=== PATIENT | male | born 1960 | race Two or more races ===

== ENCOUNTER 2017-03-09 13:47 | Inpatient (IN) | payer MEDICARE, MEDICAID ==
[~2017-03-09] VITALS: Ht 162.6 cm; Wt 61.7 kg
[2017-03-09 17:00] VITALS: BP 113/73
[2017-03-09] MEDS ORDERED: LIPITOR80 MG ORAL (17:12)
[2017-03-09] MEDS ORDERED: PLAVIX300 MG ORAL (17:12)
[2017-03-09] MEDS ORDERED: LISINOPRIL5 MG ORAL (17:12)
[2017-03-09] MEDS ORDERED: TERAZOSIN HCL2 MG PO (17:12)
[2017-03-09] MEDS ORDERED: NORVASC2.5 MG ORAL (17:14)
--- NOTE | 2017-03-09 17:14 | History & Physical ---
History and Physical History & Physicial Case was discussed with Dr Erickson Full consult will be dictated KIKE GASPAR Mar 09, 2017 17:14
[2017-03-09 17:50] LABS: CALCIUM 10.1 mg/dL (8.6-10.2); CREATININE 10.6 mg/dL (0.7-1.2); GLOMERULAR FILTRATION RATE 5.1 mL/min (>60); POTASSIUM 4.9 mEQ/L (3.4-4.9)
[2017-03-09 20:20] VITALS: BP 110/73
[2017-03-09] MEDS: Heparin 5000 units/ml inj SUBQ SCH (21:59)
[2017-03-09] MEDS: Terazosin 2mg cap ORAL SCH (21:59)
[2017-03-10] VITALS (7 sets, daily range): BP systolic 109–131; BP diastolic 65–78
[2017-03-10] MEDS: Heparin 5000 units/ml inj SUBQ SCH ×3 (06:00→21:07)
[2017-03-10 07:07] LABS: MEAN CORPUSCULAR HEMOGLOBIN 35.3 PG (27.0-31.0); MEAN CORPUSCULAR VOLUME 104 FL (80-99); MEAN PLATELET VOLUME 6.5 FL (6.5-10.1); PLATELET COUNT 190 K/UL (150-450); RED BLOOD COUNT 3.03 M/UL (4.70-6.10); RED CELL DISTRIBUTION WIDTH 12.7 % (11.6-14.8); WHITE BLOOD COUNT 10.9 K/UL (4.8-10.8)
[2017-03-10 07:14] LABS: INR 1.1 (0.9-1.1); PROTHROMBIN TIME 11.4 SEC (9.30-11.50)
[2017-03-10 07:23] LABS: ALBUMIN/GLOBULIN RATIO 1.6 (1.0-2.7); CALCIUM 9.9 mg/dL (8.6-10.2); CREATININE 8.8 mg/dL (0.7-1.2); GLOMERULAR FILTRATION RATE 6.3 mL/min (>60); POTASSIUM 4.5 mEQ/L (3.4-4.9); TOTAL PROTEIN 6.8 g/dL (6.6-8.7)
[2017-03-10 08:11] LABS: BAND NEUTROPHILS % (MANUAL) 0 % (0-8); BASOPHILS % (MANUAL) 1 % (0-2); EOSINOPHILS % (MANUAL) 27 % (0-3); LYMPHOCYTES % (MANUAL) 23 % (20-45); NEUTROPHILS % (MANUAL) 45 % (45-75); PLATELET ESTIMATE ADEQUATE; TOTAL CELLS COUNTED 100
[2017-03-10 08:12] LABS: PLATELET MORPHOLOGY NORMAL
[2017-03-10 08:15] LABS: MACROCYTES 1+
[2017-03-10] MEDS ORDERED: Lidocaine 1% Plain 30 ml INJ ONE (12:30)
[2017-03-10] MEDS ORDERED: Heparin 2000 units/Ns 1000ml INJ ONE (12:30)
[2017-03-10] MEDS ORDERED: Heparin Sod 1000 units/ml 10ml INJ ONE (12:30)
--- NOTE | 2017-03-10 13:08 | Consultation ---
Consult Note Assessment/Plan Renal consult dictated # [id number] KIKE GASPAR Mar 10, 2017 13:08
[2017-03-10 13:35] LABS: PSA TOTAL 0.7 ng/mL (< 3.5)
[2017-03-10 13:48] LABS: CHOLESTEROL/HDL RATIO 3.7 (3.3-4.4)
--- NOTE | 2017-03-10 15:35 | History & Physical ---
History and Physical History & Physicial Dictated for Int Med-Dr Erickson no. [id number]. SONU MCINTOSH Mar 10, 2017 15:35
--- NOTE | 2017-03-10 18:40 | Cardiology Report ---
APPROVED REPORT EXAM: Two-dimensional and M-mode echocardiogram with Doppler and color Doppler. INDICATION CAD M-Mode DIMENSIONS IVSd1.4 (0.7-1.1cm)Left Atrium (MM)3.5 (1.6-4.0cm) LVDd4.1 (3.5-5.6cm)Aortic Root3.2 (2.0-3.7cm) PWd0.8 (0.7-1.1cm)Aortic Cusp Exc.1.8 (1.5-2.0cm) LVDs1.7 (2.5-4.0cm) PWs1.7 cm Normal left ventricular chamber size, hyperdynamic systolic function and wall motion. Left ventricular ejection fraction estimated to be 70-75 %. Mild left ventricular hypertrophy. Anterior Echo-free space, may be due to pericardial fat or effusion. All other cardiac chamber sizes are within normal limits. Focal aortic valve sclerosis with adequate cusp excursion. Thickened mitral valve leaflets with normal excursion. Mitral annulus and aortic root calcification. Pulmonic valve not well visualized. Normal tricuspid valve structure. IVC at normal size with physiologic collapse. A color flow and spectral Doppler study was performed and revealed: Trace aortic regurgitation. Trace mitral regurgitation. Mitral diastolic velocities suggest reduced left ventricular relaxation c/w mild LV diastolic dysfunction (Grade I). Trace tricuspid regurgitation. Tricuspid systolic velocities suggests peak right ventricular systolic pressure of 13 mmHg.
--- NOTE | 2017-03-10 21:07 | Consultation ---
History of Present Illness Present Illness Allergies: Coded Allergies: NO KNOWN ALLERGIES (Verified Allergy, Unknown, 03/09/17) Medication History Scheduled Amlodipine Besylate (Norvasc), 2.5 MG ORAL DAILY, (Reported) Atorvastatin (Lipitor), 10 MG ORAL BEDTIME, (Reported) Clopidogrel Bisulfate (Plavix), 75 MG ORAL DAILY, (Reported) Lisinopril (Lisinopril*), 5 MG ORAL DAILY, (Reported) Terazosin Hcl (Terazosin Hcl), 2 MG PO BEDTIME, (Reported) Patient History Healthcare decision maker Resuscitation status Full Code Advanced Directive on File Physical Exam Last 24 Hour Vital Signs Date Time Temp Pulse Resp B/P (MAP) Pulse Ox O2 Delivery O2 Flow Rate FiO2 03/10/17 20:00 97.2 88 20 131/78 98 Room Air 03/10/17 16:00 94 03/10/17 15:33 98.2 86 18 111/73 98 Room Air 03/10/17 12:00 103 03/10/17 11:41 97.7 97 18 116/69 98 Room Air 03/10/17 08:53 95 116/73 03/10/17 08:30 98.6 95 18 116/73 100 Room Air 03/10/17 08:00 90 03/10/17 04:30 98.0 58 20 110/72 96 Room Air 03/10/17 04:30 97.7 81 20 109/65 98 Room Air 03/10/17 04:00 74 03/10/17 00:25 98.0 98 20 110/73 98 Room Air 03/10/17 00:00 83 03/10/17 00:00 97.7 81 20 109/65 98 Room Air Intake and Output 03/10/17 03/11/17 18:59 06:59 Intake Total 360 ml Output Total 400 ml Balance -40 ml Intake Oral 360 ml Output Urine Total 400 ml Laboratory Tests Test 03/10/17 06:15 03/10/17 06:45 White Blood Count 10.9 K/UL (4.8-10.8) H Red Blood Count 3.03 M/UL (4.70-6.10) L Hemoglobin 10.7 G/DL (14.2-18.0) L Hematocrit 31.4 % (42.0-52.0) L Mean Corpuscular Volume 104 FL (80-99) H Mean Corpuscular Hemoglobin 35.3 PG (27.0-31.0) H Mean Corpuscular Hemoglobin Concent 34.0 G/DL (32.0-36.0) Red Cell Distribution Width 12.7 % (11.6-14.8) Platelet Count 190 K/UL (150-450) Mean Platelet Volume 6.5 FL (6.5-10.1) Neutrophils (%) (Auto) % (45.0-75.0) Lymphocytes (%) (Auto) % (20.0-45.0) Monocytes (%) (Auto) % (1.0-10.0) Eosinophils (%) (Auto) % (0.0-3.0) Basophils (%) (Auto) % (0.0-2.0) Differential Total Cells Counted 100 Neutrophils % (Manual) 45 % (45-75) Lymphocytes % (Manual) 23 % (20-45) Monocytes % (Manual) 4 % (1-10) Eosinophils % (Manual) 27 % (0-3) H Basophils % (Manual) 1 % (0-2) Band Neutrophils 0 % (0-8) Platelet Estimate Adequate Platelet Morphology Normal Macrocytosis 1+ Prothrombin Time 11.4 SEC (9.30-11.50) Prothromb Time International Ratio 1.1 (0.9-1.1) Activated Partial Thromboplast Time 23 SEC (23-33) Calcium (Send out) Pending Phosphorus Level 6.7 mg/dL (2.5-4.8) H Triglycerides Level 76 mg/dL (< 150) Cholesterol Level 106 mg/dL (< 200) LDL Cholesterol 62 mg/dL (60-99) HDL Cholesterol 29 mg/dL (> 60) Cholesterol/HDL Ratio 3.7 (3.3-4.4) Prostate Specific Antigen 0.7 ng/mL (< 3.5) Parathyroid Hormone (Intact) Pending Sodium Level 146 mEQ/L (135-145) H Potassium Level 4.5 mEQ/L (3.4-4.9) Chloride Level 102 mEQ/L (98-107) Carbon Dioxide Level 26 mEQ/L (20-30) Anion Gap 18 (5-15) H Blood Urea Nitrogen 100 mg/dL (7-23) H Creatinine 8.8 mg/dL (0.7-1.2) H Estimat Glomerular Filtration Rate 6.3 mL/min (>60) Glucose Level 98 mg/dL (74-106) Calcium Level 9.9 mg/dL (8.6-10.2) Magnesium Level 2.0 mg/dL (1.7-2.5) Total Bilirubin 0.4 mg/dL (0.0-1.2) Aspartate Amino Transf (AST/SGOT) 14 U/L (5-40) Alanine Aminotransferase (ALT/SGPT) 14 U/L (3-41) Alkaline Phosphatase 102 U/L (40-129) Total Protein 6.8 g/dL (6.6-8.7) Albumin 4.2 g/dL (3.5-5.2) Globulin 2.6 g/dL Albumin/Globulin Ratio 1.6 (1.0-2.7) Height (Feet): 5 Height (Inches): 4.00 Weight (Pounds): 136 Medications Current Medications Medications (Trade) Dose Ordered Sig/Osiris Route PRN Reason Start Time Stop Time Status Last Admin Dose Admin Acetaminophen (Tylenol) 650 mg Q6H PRN ORAL Mild Pain/Temp > 100.5 03/09/17 17:30 04/08/17 17:29 Amlodipine Besylate (Norvasc) 2.5 mg DAILY ORAL 03/10/17 09:00 04/09/17 08:59 03/10/17 08:53 Atorvastatin Calcium (Lipitor) 10 mg BEDTIME ORAL 03/09/17 21:00 04/08/17 20:59 03/09/17 21:58 Clopidogrel Bisulfate (Plavix) 75 mg DAILY ORAL 03/10/17 09:00 04/09/17 08:59 03/10/17 08:53 Heparin Sodium (Porcine) (Heparin 5000 units/ml) 5,000 units EVERY 8 HOURS SUBQ 03/09/17 22:00 04/08/17 21:59 03/10/17 13:21 Terazosin HCl (Hytrin) 2 mg BEDTIME ORAL 03/09/17 21:00 04/08/17 20:59 03/09/17 21:59 LOAN LAURA Mar 10, 2017 21:07
[2017-03-10] MEDS: Terazosin 2mg cap ORAL SCH (21:10)
--- NOTE | 2017-03-10 22:00 | History and Physical Report ---
DATE OF ADMISSION: 03/09/2017 CHIEF COMPLAINT: The patient is a 56-year-old male, who presents with chief complaint of decreased urine output. HISTORY OF PRESENT ILLNESS: The patient has a history of hypertension. The patient is followed as an outpatient for hypertensive renal disease by Dr. Hans Palacios. The patient states he had laboratory studies drawn a week ago, which were normal. The patient states two days ago, he began to experience decreased urine output. The patient states he does not have air conditioning in his apartment. The patient states the temperature in the apartment reached to 103 degrees Fahrenheit. The patient initially presented to [facility] emergency room. The patient was found to have elevated BUN and creatinine. The patient is admitted for acute on chronic renal failure. REVIEW OF SYSTEMS: Constitutional: The patient denies weight loss or weight gain. The patient denies fevers or chills. HEENT: The patient denies ear or throat pain. The patient denies headache. Cardiovascular: The patient denies palpitations or chest pain. Chest: The patient denies wheeze or shortness of breath. Abdomen: The patient denies nausea, vomiting, diarrhea, or constipation. Genitourinary: The patient complains of decreased urine output as above. The patient denies increased frequency of urination or dysuria. PAST MEDICAL HISTORY: Significant for: 1. Hypertension. 2. History of cerebrovascular accident. 3. Right hemiplegia. 4. Benign prostatic hypertrophy. 5. History of chronic renal failure. PAST SURGICAL HISTORY: The patient denies. CURRENT MEDICATIONS: 1. Lipitor 10 mg one tablet p.o. daily. 2. Lisinopril 5 mg one tablet p.o. daily. 3. Hytrin 10 mg one tablet p.o. nightly. 4. Plavix 75 mg one tablet p.o. daily. 5. Tramadol 50 mg one to two tablets p.o. q.4 h. p.r.n. 6. Norvasc 2.5 mg one tablet p.o. daily. 7. Prilosec 40 mg one tablet p.o. daily. 8. Labetalol 100 mg one tablet p.o. daily. 9. Mylicon 80 mg one tablet p.o. p.r.n. ALLERGIES: No known drug allergies. SOCIAL HISTORY: The patient is single. The patient lives with a friend. The patient denies tobacco or alcohol use. PHYSICAL EXAMINATION: VITAL SIGNS: Temperature is 98.0, respirations 20, pulse 98, and blood pressure 110/73. GENERAL: The patient is well-developed and well-nourished thin-appearing male, in no apparent distress. HEENT: Eyes, pupils are equal and responsive to light and accommodation. Extraocular movements are intact. NECK: Supple without lymphadenopathy. CHEST: Lungs are clear to auscultation bilaterally without wheezes or rales. CARDIOVASCULAR: Regular rhythm and rate. S1 and S2 normal without murmurs, rubs, or gallops. ABDOMEN: Soft, nontender, and nondistended. Positive bowel sounds. No evidence of hepatosplenomegaly. Currently, no rebound or guarding noted. EXTREMITIES: Negative for clubbing, cyanosis, or edema. RECTAL/GENITAL: Refused. NEUROLOGIC: Cranial nerves II through XII are grossly intact without focal deficits. Motor strength is 2/5 on the right and 5/5 on the left. Deep tendon reflexes are 2+ plantar. LABORATORY STUDIES: From [place], WBC 9.2, hemoglobin 10.8, hematocrit 32.0, and platelets . INCOMPLETE DICTATION Willi Aguila M.D. DR: PACHECO JOB#: [id number] CC:
--- NOTE | 2017-03-10 23:45 | Consultation ---
DATE OF CONSULTATION: 03/09/2017 NEPHROLOGY CONSULTATION CONSULTING PHYSICIAN: Joaquín Hankins M.D. REFERRING PHYSICIAN: Ihsan Erickson M.D. REASON FOR CONSULTATION: Advanced renal failure. HISTORY OF PRESENT ILLNESS: This is a 56-year-old male, who was diagnosed with kidney failure about 7 years ago. This is according to the patient. However, he does not know what is baseline serum creatinine is. He went recently to [facility], because he could not urinate. He stopped urination for about 2 days. He stated his potassium was high and given something to lower his potassium, but then he was able to urinate. He was eventually transferred to [facility] from [place]. PAST MEDICAL HISTORY: He denies history of diabetes, but he does have history of hypertension. MEDICATIONS: Reviewed in EMR. SOCIAL HISTORY: Remote history of smoking. No history of alcohol abuse. The patient lives with a roommate. ALLERGIES: No known drug allergies. REVIEW OF SYSTEMS: As above. PHYSICAL EXAMINATION: GENERAL: The patient is a 56-year-old male, in no acute distress. VITAL SIGNS: Blood pressure is 160/69, pulse 97, respiratory rate is 18, and temperature 97.7 degrees. HEENT: Somewhat pale conjunctivae. Anicteric sclerae. NECK: Supple. LUNGS: Clear to auscultation. HEART: S1 and S2 without murmurs or rubs. ABDOMEN: Soft and nontender. EXTREMITIES: No cyanosis or edema. LABORATORY FINDINGS: The CBC shows a WBC of 10.9, hematocrit is 31.4, hemoglobin is 10.7, and platelets is 190,000. Chemistry panel shows a serum sodium of 148, potassium 4.9, chloride 103, CO2 26, BUN is 107, creatinine 10.6, glucose 160, and calcium is 10.1. Phosphorus 6.7 this is today, also BUN and creatinine today are 100 and 8.8. ASSESSMENT: This is a 56-year-old male, who is admitted with urinary retention. It is unclear what is the patient's serum creatinine is. It appears that he has acute on chronic renal failure. His serum creatinine is slightly better today compared with yesterday. I am suspecting that he has BPH and probably that is causing obstructive uropathy, but he may have underlying hypertensive nephropathy as well. PLAN: I had a long discussion with the patient. He may need long-term dialysis. However, at this point, I do not think there is an urgency since his creatinine has come down slightly and also we have to find out if his obstruction is acute, causing some of his rise in serum creatinine. Plan is a kidney ultrasound will be done. I would recommend to get a urology consultation if there is indeed obstruction under ultrasound. His chemistry panel will be followed if the patient needs to have dialysis long-term, he would get a PermCath. All of this was discussed with the patient and he understood. Also, as part of workup of his chronic kidney disease, I would get a PTH level with morning labs. Thank you very much, Dr. Erickson, for this consultation. Joaquín Hankins M.D. DR: MIKALA JOB#: [id number] CC:
[2017-03-11] VITALS (7 sets, daily range): BP systolic 102–130; BP diastolic 62–84
--- NOTE | 2017-03-11 00:45 | History and Physical Report ---
DATE OF ADMISSION: 03/09/2017 CHIEF COMPLAINT: The patient is a 56-year-old male, presents with chief complaint of decreased urine output. HISTORY OF PRESENT ILLNESS: The patient has a history of chronic renal failure. The patient is followed as an outpatient by Dr. Hans Palacios. The patient states he had laboratory studies drawn two weeks previously, which was within normal limits. The patient states during the recent heat wave, temperature in his apartment reached to 102 degrees Fahrenheit. The patient does not have air conditioning. The patient then began to experience decreased urine output. The patient initially presented to [facility] emergency room. The patient was found to have elevated BUN and creatinine. The patient is transferred to [facility] for insurance purposes. The patient is admitted for acute renal failure. PAST MEDICAL HISTORY: Significant for: 1. Hypertension. 2. Cerebrovascular disease, status post cerebrovascular accident in 2009. 3. Benign prostatic hypertrophy. 4. Chronic renal disease. PAST SURGICAL HISTORY: The patient denies. CURRENT MEDICATIONS: 1. Lipitor 10 mg one tablet p.o. daily. 2. Lisinopril 5 mg one tablet p.o. daily. 3. Hytrin 2 mg one tablet p.o. daily. 4. Plavix 75 mg one tablet p.o. daily. 5. Amlodipine 2.5 mg one tablet p.o. daily. 6. Lipitor 10 mg one tablet p.o. daily. 7. Coreg 6.25 mg one tablet p.o. twice a day. 8. Iron sulfate. 9. Vitamin, multivitamin. 10. Allopurinol. ALLERGIES: No known drug allergies. SOCIAL HISTORY: The patient is single and lives with a friend. The patient denies tobacco or alcohol use. REVIEW OF SYSTEMS: Constitutional: The patient denies weight loss or weight gain. The patient denies fevers or chills. HEENT: The patient denies ear or throat pain. The patient denies headache. Cardiovascular: The patient denies palpitations or chest pain. Chest: The patient denies wheeze or shortness of breath. Abdominal: The patient denies nausea, vomiting, diarrhea, or constipation. Genitourinary: The patient complains of decreased urine output as above. The patient denies dysuria or increased frequency of urination. Neuromuscular: The patient denies seizures or generalized weakness. PHYSICAL EXAMINATION: VITAL SIGNS: Temperature 98.0 degrees, respirations 20, pulse 98, and blood pressure 110/73. GENERAL: The patient is a well-developed, well-nourished, thin-appearing male, in no apparent distress. HEENT: Eyes: Pupils equal and responsive to light and accommodation. Extraocular movements are intact. NECK: Supple without lymphadenopathy. CHEST: Lungs are clear to auscultation bilaterally without wheezes or rales. CARDIOVASCULAR: Regular rhythm and rate. S1 and S2 normal without murmurs, rubs, or gallops. ABDOMEN: Soft, nontender, and nondistended. Positive bowel sounds. No evidence of hepatosplenomegaly. Currently, no rebound or guarding noted. EXTREMITIES: Negative for clubbing, cyanosis, or edema. RECTAL: Refused. GENITAL: Refused. NEUROLOGIC: Cranial nerves II to XII are grossly intact without focal deficits. Motor strength is 2/5 on the right and 5/5 on the left. Deep tendon reflexes are 2+ plantar. LABORATORY STUDIES: From [place], WBC 9.2, hemoglobin 10.8, hematocrit 32.0, and platelets 282,000. Sodium 138, potassium 5.8, chloride 102, CO2 of 23, BUN 111 (elevated), creatinine elevated at 11.3, and glucose elevated at 152. Urinalysis showed negative leukocyte esterase and nitrite. ASSESSMENT: This is a 56-year-old male. 1. Oliguria. 2. Renal failure. 3. Hypertension. 4. Right hemiplegia. 5. Benign prostatic hypertrophy. 6. Cerebrovascular disease. TREATMENT: 1. Oliguria/renal failure. A Nephrology consultation was obtained with Dr. Joaquín Hanikns. A renal ultrasound is pending. We will follow recommendations of Dr. Hankins. 2. Hypertension. Continue Norvasc and Coreg as above. 3. Right hemiplegia. 4. Benign prostatic hypertrophy. Continue Hytrin as above. 5. History of cerebrovascular disease. Willi Aguila M.D. DR: Gracie JOB#: [id number] CC:
[2017-03-11] MEDS: Heparin 5000 units/ml inj SUBQ SCH ×3 (04:59→22:18)
[2017-03-11 07:12] LABS: CALCIUM 9.7 mg/dL (8.6-10.2); CREATININE 7.8 mg/dL (0.7-1.2); GLOMERULAR FILTRATION RATE 7.2 mL/min (>60); POTASSIUM 4.8 mEQ/L (3.4-4.9)
--- NOTE | 2017-03-11 09:43 | Diagnostic Imaging Report ---
Indication: Abnormal renal function tests Technique: Grayscale and duplex images of the kidneys, retroperitoneum, and bladder were obtained. Comparison:None Findings: Right kidney measures 6.7 cm in length. Left kidney measures 8 cm in length. Both kidneys demonstrate increased echogenicity. No hydronephrosis. There are bilateral renal cysts incidentally noted. Normal inferior vena cava. Bladder is normal. Impression: Bilateral atrophic echogenic kidneys, consistent with medical renal disease. Negative for hydronephrosis Incidental finding bilateral renal cysts.
--- NOTE | 2017-03-11 12:04 | Internal Med Progress Note ---
Subjective Date of Service: Mar 11, 2017 Physician Name Willi Mcintosh Attending Physician Ihsan Erickson MD Current Medications Medications (Trade) Dose Ordered Sig/Osiris Route PRN Reason Start Time Stop Time Status Last Admin Dose Admin Acetaminophen (Tylenol) 650 mg Q6H PRN ORAL Mild Pain/Temp > 100.5 03/09/17 17:30 04/08/17 17:29 Amlodipine Besylate (Norvasc) 2.5 mg DAILY ORAL 03/10/17 09:00 04/09/17 08:59 03/10/17 08:53 Atorvastatin Calcium (Lipitor) 10 mg BEDTIME ORAL 03/09/17 21:00 04/08/17 20:59 03/10/17 21:10 Clopidogrel Bisulfate (Plavix) 75 mg DAILY ORAL 03/10/17 09:00 04/09/17 08:59 03/11/17 08:27 Heparin Sodium (Porcine) (Heparin 5000 units/ml) 5,000 units EVERY 8 HOURS SUBQ 03/09/17 22:00 04/08/17 21:59 03/11/17 04:59 Terazosin HCl (Hytrin) 2 mg BEDTIME ORAL 03/09/17 21:00 04/08/17 20:59 03/10/17 21:10 Allergies: Coded Allergies: NO KNOWN ALLERGIES (Verified Allergy, Unknown, 03/09/17) ROS Limited/Unobtainable: No Constitutional: Reports: no symptoms HEENT: Reports: no symptoms Cardiovascular: Reports: no symptoms Respiratory: Reports: no symptoms Gastrointestinal/Abdominal: Reports: no symptoms Genitourinary: Reports: no symptoms Neurologic/Psychiatric: Reports: no symptoms Subjective 56 YO M admitted with oliguria. Now acute on chronic renal failure. Cover for Int med-Dr Erickson. Await urology consult to R/O obstructive uropathy Objective Last Vital Signs Date Time Temp Pulse Resp B/P (MAP) Pulse Ox O2 Delivery O2 Flow Rate FiO2 03/11/17 08:27 100 102/68 03/11/17 08:25 97.5 18 96 Room Air General Appearance: WD/WN, no apparent distress, alert EENT: PERRL/EOMI, normal ENT inspection, TMs normal Neck: non-tender, normal alignment, supple, normal inspection Cardiovascular: normal peripheral pulses, normal rate, regular rhythm, no gallop/murmur, no JVD Respiratory/Chest: chest wall non-tender, lungs clear, normal breath sounds, no respiratory distress, no accessory muscle use Abdomen: normal bowel sounds, non tender, soft, no organomegaly, no mass Extremities: normal range of motion Neurologic: nursing project coordinator II-XII grossly normal Skin: normal pigmentation, warm/dry Laboratory Tests Test 03/11/17 06:15 Sodium Level 141 mEQ/L (135-145) Potassium Level 4.8 mEQ/L (3.4-4.9) Chloride Level 100 mEQ/L (98-107) Carbon Dioxide Level 26 mEQ/L (20-30) Anion Gap 15 (5-15) Blood Urea Nitrogen 95 mg/dL (7-23) H Creatinine 7.8 mg/dL (0.7-1.2) H Estimat Glomerular Filtration Rate 7.2 mL/min (>60) Glucose Level 98 mg/dL (74-106) Hemoglobin A1c 5.6 % (< 6.0) Calcium Level 9.7 mg/dL (8.6-10.2) Magnesium Level 1.9 mg/dL (1.7-2.5) Intake and Output 03/11/17 03/12/17 19:00 07:00 Output Total 150 ml Balance -150 ml Output Urine Total 150 ml Assessment/Plan Problem List: (1) Oliguria (2) HTN (hypertension) Assessment & Plan: Better control with norvasc (3) Right hemiplegia (4) BPH (benign prostatic hyperplasia) Assessment & Plan: Cont hytrin; await urology consult. (5) Cerebral vascular disease (6) Renal failure Assessment & Plan: Acute on chronic. See nephrology note; await urology consult to R/O obstructive uropathy Status: progressing WILLI MCINTOSH Mar 11, 2017 12:04
[2017-03-11 13:11] LABS: CALCIUM 9.4 mg/dL (8.7-10.2); PTH INTACT 369 pg/mL (15-65)
--- NOTE | 2017-03-11 13:29 | Nephrology Progress Note ---
Assessment/Plan Problem List: (1) Acute on chronic renal failure (2) Secondary hyperparathyroidism (of renal origin) (3) HTN (hypertension) Plan Add Zemplar follow BMP Hold off on dialysis Subjective Subjective feels ok Objective Objective Last 24 Hour Vital Signs Date Time Temp Pulse Resp B/P (MAP) Pulse Ox O2 Delivery O2 Flow Rate FiO2 03/11/17 12:00 97.5 94 18 111/76 99 Room Air 03/11/17 08:27 100 102/68 03/11/17 08:25 97.5 100 18 102/68 96 Room Air 03/11/17 08:00 93 03/11/17 04:00 97.9 82 20 107/64 96 Room Air 03/11/17 00:00 97.9 79 18 108/76 96 Room Air 03/10/17 20:00 97.2 88 20 131/78 98 Room Air 03/10/17 16:00 94 03/10/17 15:33 98.2 86 18 111/73 98 Room Air Intake and Output 03/11/17 03/12/17 19:00 07:00 Output Total 1300 ml Balance -1300 ml Output Urine Total 1300 ml Laboratory Tests 03/11/17 06:15: Sodium Level 141, Potassium Level 4.8, Chloride Level 100, Carbon Dioxide Level 26, Anion Gap 15, Blood Urea Nitrogen 95H, Creatinine 7.8H, Estimat Glomerular Filtration Rate 7.2, Glucose Level 98, Hemoglobin A1c 5.6, Calcium Level 9.7, Magnesium Level 1.9 Height (Feet): 5 Height (Inches): 4.00 Weight (Pounds): 136 Cardiovascular: normal rate Respiratory/Chest: lungs clear KIKE GASPAR Mar 11, 2017 13:29
[2017-03-11] MEDS ORDERED: Paricalcitol 1mcg cap ORAL SCH (14:30)
--- NOTE | 2017-03-11 15:27 | Pulmonology Progress Note ---
Assessment/Plan Problems: (1) Acute on chronic renal failure (2) HTN (hypertension) (3) Right hemiplegia Assessment/Plan renal function improving slightly Renal US noted med/surg no acute cardiac issues f/u electrolytes in am Subjective ROS Limited/Unobtainable: No Constitutional: Reports: no symptoms HEENT: Repors: no symptoms Respiratory: Reports: no symptoms Allergies: Coded Allergies: NO KNOWN ALLERGIES (Verified Allergy, Unknown, 03/09/17) Objective Last 24 Hour Vital Signs Date Time Temp Pulse Resp B/P (MAP) Pulse Ox O2 Delivery O2 Flow Rate FiO2 03/11/17 12:00 97.5 94 18 111/76 99 Room Air 03/11/17 08:27 100 102/68 03/11/17 08:25 97.5 100 18 102/68 96 Room Air 03/11/17 08:00 93 03/11/17 04:00 97.9 82 20 107/64 96 Room Air 03/11/17 00:00 97.9 79 18 108/76 96 Room Air 03/10/17 20:00 97.2 88 20 131/78 98 Room Air 03/10/17 16:00 94 03/10/17 15:33 98.2 86 18 111/73 98 Room Air Intake and Output 03/11/17 03/12/17 19:00 07:00 Output Total 1300 ml Balance -1300 ml Output Urine Total 1300 ml General Appearance: WD/WN HEENT: normocephalic, atraumatic Respiratory/Chest: chest wall non-tender, lungs clear, normal breath sounds Cardiovascular: normal peripheral pulses, normal rate Abdomen: normal bowel sounds, soft, non tender Genitourinary: normal external genitalia Extremities: no cyanosis Skin: no rash Neurologic/Psychiatric: compensation director II-XII grossly normal, no motor/sensory deficits Lymphatic: no neck adenopathy Laboratory Tests 03/11/17 06:15: Sodium Level 141, Potassium Level 4.8, Chloride Level 100, Carbon Dioxide Level 26, Anion Gap 15, Blood Urea Nitrogen 95H, Creatinine 7.8H, Estimat Glomerular Filtration Rate 7.2, Glucose Level 98, Hemoglobin A1c 5.6, Calcium Level 9.7, Magnesium Level 1.9 Current Medications Medications (Trade) Dose Ordered Sig/Osiris Route PRN Reason Start Time Stop Time Status Last Admin Dose Admin Acetaminophen (Tylenol) 650 mg Q6H PRN ORAL Mild Pain/Temp > 100.5 03/09/17 17:30 04/08/17 17:29 Amlodipine Besylate (Norvasc) 2.5 mg DAILY ORAL 03/10/17 09:00 04/09/17 08:59 03/10/17 08:53 Atorvastatin Calcium (Lipitor) 10 mg BEDTIME ORAL 03/09/17 21:00 04/08/17 20:59 03/10/17 21:10 Clopidogrel Bisulfate (Plavix) 75 mg DAILY ORAL 03/10/17 09:00 04/09/17 08:59 03/11/17 08:27 Heparin Sodium (Porcine) (Heparin 5000 units/ml) 5,000 units EVERY 8 HOURS SUBQ 03/09/17 22:00 04/08/17 21:59 03/11/17 04:59 Paricalcitol (Zemplar) 1 mcg DAILY ORAL 03/11/17 14:30 04/10/17 14:29 Terazosin HCl (Hytrin) 2 mg BEDTIME ORAL 03/09/17 21:00 04/08/17 20:59 03/10/17 21:10 LOAN LAURA Mar 11, 2017 15:27
[2017-03-11 16:10] LABS: APPEARANCE,URINE CLEAR; KETONES,URINE NEGATIVE (NEGATIVE); LEUKOCYTE ESTERASE ,URINE NEGATIVE (NEGATIVE); NITRITE,URINE NEGATIVE (NEGATIVE); PH,URINE 8 (4.5-8.0); PROTEIN,URINE 1+ (NEGATIVE); UROBILINOGEN,URINE NORMAL MG/DL (0.0-1.0)
--- NOTE | 2017-03-11 16:17 | Cardiology Report ---
APPROVED REPORT EKG Measurement Heart [id number] Normal sinus rhythm Low voltage QRS Borderline ECG
[2017-03-11 16:36] LABS: BACTERIA,URINE FEW /HPF; RBC,URINE 0-2 /HPF (0 - 0); WBC,URINE 0-2 /HPF (0 - 0)
[2017-03-11] MEDS: Terazosin 2mg cap ORAL SCH (22:14)
[2017-03-12 04:00] VITALS: BP 104/63
[2017-03-12] MEDS: Heparin 5000 units/ml inj SUBQ SCH ×3 (05:52→20:52)
[2017-03-12 07:38] LABS: MEAN CORPUSCULAR HEMOGLOBIN 35.7 PG (27.0-31.0); MEAN CORPUSCULAR HGB CONC 33.9 G/DL (32.0-36.0); MEAN CORPUSCULAR VOLUME 105 FL (80-99); MEAN PLATELET VOLUME 7.1 FL (6.5-10.1); PLATELET COUNT 176 K/UL (150-450); RED BLOOD COUNT 2.89 M/UL (4.70-6.10); RED CELL DISTRIBUTION WIDTH 12.5 % (11.6-14.8)
[2017-03-12 07:53] LABS: OTHERS PATHOLOGIST COMMENT
[2017-03-12 08:08] LABS: CALCIUM 9.5 mg/dL (8.6-10.2); CREATININE 6.8 mg/dL (0.7-1.2); GLOMERULAR FILTRATION RATE 8.4 mL/min (>60); POTASSIUM 4.8 mEQ/L (3.4-4.9)
[2017-03-12 08:25] VITALS: BP 95/62
[2017-03-12 08:37] LABS: BAND NEUTROPHILS % (MANUAL) 0 % (0-8); BASOPHILS % (MANUAL) 2 % (0-2); EOSINOPHILS % (MANUAL) 19 % (0-3); LYMPHOCYTES % (MANUAL) 28 % (20-45); NEUTROPHILS % (MANUAL) 43 % (45-75); PLATELET ESTIMATE ADEQUATE; PLATELET MORPHOLOGY NORMAL; TOTAL CELLS COUNTED 100
[2017-03-12 08:38] LABS: HYPOCHROMASIA 1+
[2017-03-12 08:40] LABS: MACROCYTES 1+
[2017-03-12] MEDS: Paricalcitol 1mcg cap ORAL SCH (09:26)
[2017-03-12 11:42] VITALS: BP 106/71
--- NOTE | 2017-03-12 12:20 | Nephrology Progress Note ---
Assessment/Plan Problem List: (1) Acute on chronic renal failure Assessment: better (2) Secondary hyperparathyroidism (of renal origin) (3) HTN (hypertension) Plan cont Zemplar follow BMP Hold off on dialysis discussed with RN Subjective Subjective feels ok Objective Objective Last 24 Hour Vital Signs Date Time Temp Pulse Resp B/P (MAP) Pulse Ox O2 Delivery O2 Flow Rate FiO2 03/12/17 11:42 97.4 99 21 106/71 100 Room Air 03/12/17 09:29 96 121/81 03/12/17 08:25 98.2 99 95/62 Room Air 03/12/17 04:00 98.4 96 18 104/63 100 Room Air 03/11/17 20:00 97.9 95 18 130/79 100 Room Air 03/11/17 17:30 98.6 106 20 124/84 98 Room Air 03/11/17 15:57 97.9 107 18 106/62 98 Room Air Intake and Output 03/12/17 03/13/17 19:00 07:00 Intake Total 310 ml Balance 310 ml Intake Oral 310 ml Laboratory Tests 03/11/17 15:40: Urine Color Pale yellow, Urine Appearance Clear, Urine pH 8, Urine Specific Gurley 1.010, Urine Protein 1+H, Urine Glucose (UA) Negative, Urine Ketones Negative, Urine Occult Blood Negative, Urine Nitrite Negative, Urine Bilirubin Negative, Urine Urobilinogen Normal, Urine Leukocyte Esterase Negative, Urine RBC 0-2H, Urine WBC 0-2, Urine Squamous Epithelial Cells None, Urine Bacteria Few 03/12/17 06:55: White Blood Count 10.0, Red Blood Count 2.89L, Hemoglobin 10.3L, Hematocrit 30.4L, Mean Corpuscular Volume 105H, Mean Corpuscular Hemoglobin 35.7H, Mean Corpuscular Hemoglobin Concent 33.9, Red Cell Distribution Width 12.5, Platelet Count 176, Mean Platelet Volume 7.1, Neutrophils (%) (Auto) , Lymphocytes (%) ( Auto) , Monocytes (%) (Auto) , Eosinophils (%) (Auto) , Basophils (%) (Auto) , Differential Total Cells Counted 100, Neutrophils % (Manual) 43L, Lymphocytes % (Manual) 28, Monocytes % (Manual) 8, Eosinophils % (Manual) 19H, Basophils % ( Manual) 2, Band Neutrophils 0, Platelet Estimate Adequate, Platelet Morphology Normal, Hypochromasia 1+, Macrocytosis 1+, Sodium Level 136, Potassium Level 4.8 , Chloride Level 98, Carbon Dioxide Level 24, Anion Gap 14, Blood Urea Nitrogen 98H, Creatinine 6.8H, Estimat Glomerular Filtration Rate 8.4, Glucose Level 97, Calcium Level 9.5 Height (Feet): 5 Height (Inches): 4.00 Weight (Pounds): 136 Cardiovascular: normal rate Respiratory/Chest: lungs clear Extremities: other - no edema KIKE GASPAR Mar 12, 2017 12:20
[2017-03-12 15:59] VITALS: BP 105/67
--- NOTE | 2017-03-12 19:41 | Internal Med Progress Note ---
Subjective Date of Service: Mar 12, 2017 Physician Name Willi Mcintosh Attending Physician Ihsan Erickson MD Current Medications Medications (Trade) Dose Ordered Sig/Osiris Route PRN Reason Start Time Stop Time Status Last Admin Dose Admin Acetaminophen (Tylenol) 650 mg Q6H PRN ORAL Mild Pain/Temp > 100.5 03/11/17 18:00 04/08/17 17:59 Amlodipine Besylate (Norvasc) 2.5 mg DAILY ORAL 03/12/17 09:00 04/09/17 08:59 03/12/17 09:29 Atorvastatin Calcium (Lipitor) 10 mg BEDTIME ORAL 03/11/17 21:00 04/08/17 20:59 03/11/17 22:14 Clopidogrel Bisulfate (Plavix) 75 mg DAILY ORAL 03/12/17 09:00 04/09/17 08:59 03/12/17 09:26 Heparin Sodium (Porcine) (Heparin 5000 units/ml) 5,000 units EVERY 8 HOURS SUBQ 03/11/17 22:00 04/08/17 21:59 03/12/17 13:58 Paricalcitol (Zemplar) 1 mcg DAILY ORAL 03/12/17 09:00 04/10/17 14:29 03/12/17 09:26 Terazosin HCl (Hytrin) 2 mg BEDTIME ORAL 03/11/17 21:00 04/08/17 20:59 03/11/17 22:14 Allergies: Coded Allergies: NO KNOWN ALLERGIES (Verified Allergy, Unknown, 03/09/17) ROS Limited/Unobtainable: No Constitutional: Reports: no symptoms HEENT: Reports: no symptoms Cardiovascular: Reports: no symptoms Respiratory: Reports: no symptoms Gastrointestinal/Abdominal: Reports: no symptoms Genitourinary: Reports: other - urinary retention Neurologic/Psychiatric: Reports: no symptoms Subjective 56 YO M admitted with oliguria. Now acute on chronic renal failure. Cover for Int med-Dr Erickson. Await urology consult to R/O obstructive uropathy Objective Last Vital Signs Date Time Temp Pulse Resp B/P (MAP) Pulse Ox O2 Delivery O2 Flow Rate FiO2 03/12/17 15:59 98.1 92 21 105/67 98 Room Air Laboratory Tests Test 03/12/17 06:55 White Blood Count 10.0 K/UL (4.8-10.8) Red Blood Count 2.89 M/UL (4.70-6.10) L Hemoglobin 10.3 G/DL (14.2-18.0) L Hematocrit 30.4 % (42.0-52.0) L Mean Corpuscular Volume 105 FL (80-99) H Mean Corpuscular Hemoglobin 35.7 PG (27.0-31.0) H Mean Corpuscular Hemoglobin Concent 33.9 G/DL (32.0-36.0) Red Cell Distribution Width 12.5 % (11.6-14.8) Platelet Count 176 K/UL (150-450) Mean Platelet Volume 7.1 FL (6.5-10.1) Neutrophils (%) (Auto) % (45.0-75.0) Lymphocytes (%) (Auto) % (20.0-45.0) Monocytes (%) (Auto) % (1.0-10.0) Eosinophils (%) (Auto) % (0.0-3.0) Basophils (%) (Auto) % (0.0-2.0) Differential Total Cells Counted 100 Neutrophils % (Manual) 43 % (45-75) L Lymphocytes % (Manual) 28 % (20-45) Monocytes % (Manual) 8 % (1-10) Eosinophils % (Manual) 19 % (0-3) H Basophils % (Manual) 2 % (0-2) Band Neutrophils 0 % (0-8) Platelet Estimate Adequate Platelet Morphology Normal Hypochromasia 1+ Macrocytosis 1+ Sodium Level 136 mEQ/L (135-145) Potassium Level 4.8 mEQ/L (3.4-4.9) Chloride Level 98 mEQ/L (98-107) Carbon Dioxide Level 24 mEQ/L (20-30) Anion Gap 14 (5-15) Blood Urea Nitrogen 98 mg/dL (7-23) H Creatinine 6.8 mg/dL (0.7-1.2) H Estimat Glomerular Filtration Rate 8.4 mL/min (>60) Glucose Level 97 mg/dL (74-106) Calcium Level 9.5 mg/dL (8.6-10.2) Microbiology Date/Time Source Procedure Growth Status 03/11/17 15:40 Urine,Clean Catch Urine Culture - Preliminary NO GROWTH Resulted Intake and Output 03/12/17 03/13/17 19:00 07:00 Intake Total 1270 ml Balance 1270 ml Intake Oral 1270 ml Objective General Appearance: WD/WN, no apparent distress, alert EENT: PERRL/EOMI, normal ENT inspection, TMs normal Neck: non-tender, normal alignment, supple, normal inspection Cardiovascular: normal peripheral pulses, normal rate, regular rhythm, no gallop/murmur, no JVD Respiratory/Chest: chest wall non-tender, lungs clear, normal breath sounds, no respiratory distress, no accessory muscle use Abdomen: normal bowel sounds, non tender, soft, no organomegaly, no mass Extremities: normal range of motion Neurologic: manager digital II-XII grossly normal Skin: normal pigmentation, warm/dry Assessment/Plan Problem List: (1) Oliguria (2) HTN (hypertension) Assessment & Plan: Better control with norvasc (3) Right hemiplegia (4) BPH (benign prostatic hyperplasia) Assessment & Plan: Cont hytrin; await urology consult. (5) Cerebral vascular disease (6) Renal failure Assessment & Plan: Improving.. See nephrology note-hold hemodialysis. Await urology consult to R/O obstructive uropathy. Continue IV fluids. Status: progressing WILLI MCINTOSH Mar 12, 2017 19:41
[2017-03-12 20:16] VITALS: BP 123/86
[2017-03-12] MEDS: Terazosin 2mg cap ORAL SCH (20:46)
[2017-03-13 00:49] VITALS: BP 108/71
--- NOTE | 2017-03-13 04:15 | Consultation ---
DATE OF CONSULTATION: 03/12/2017 UROLOGY CONSULTATION ATTENDING/REFERRING PHYSICIAN: Willi Aguila M.D. CHIEF COMPLAINT/HISTORY OF PRESENT ILLNESS: I was asked by Dr. Aguila to evaluate this very pleasant, 56-year-old gentleman regarding a history of progressive renal failure and concern for obstructive uropathy. Briefly, the patient has a history of chronic renal failure. Apparently lately he has had acute on chronic insufficiency and oliguria. He initially presented to [facility] and was found to have acute on chronic renal failure. He was subsequently transferred here secondary to insurance reasons. Given the above, I was asked to evaluate the patient regarding obstructive uropathy. The patient reports taking a small dose of Hytrin daily for BPH. He reports when he takes this medication, he experiences no difficulty urinating and that he has a good force of stream. He denies any history incomplete emptying of his bladder, double voiding, or straining to void. He also denies any history of dysuria, hematuria, or previous urinary tract infections or kidney stones. In the last two hours, the patient has voided 700 mL at the bedside in two separate urinations. PAST MEDICAL HISTORY: 1. Hypertension. 2. CVA. 3. Chronic renal insufficiency. 4. Presumed BPH. PAST SURGICAL HISTORY: None. MEDICATIONS: Please see the chart for current medications administration details. Briefly, the patient is on Hytrin 2 mg daily for BPH. ALLERGIES: No known drug allergies. SOCIAL HISTORY: Unremarkable for tobacco, alcohol, or drug use. The patient lives with his friends. FAMILY HISTORY: Noncontributory. REVIEW OF SYSTEMS: A 12-system review of systems essentially unremarkable outside of what is noted above. PHYSICAL EXAMINATION: GENERAL: The patient is a older gentleman, awake, alert, and oriented x4, pleasant, in no obvious distress. HEENT: NCAT. EOMI intact. NECK: Supple. Full range of motion. Oropharynx clear. Chest within normal limits. ABDOMEN: Soft, nontender, and nondistended. EXTREMITIES: Warm and well perfused. No cyanosis, clubbing, or edema. BACK: No CVA tenderness to percussion. NEUROLOGIC: Deferred at this time. GENITOURINARY: Reveals normal male external genitalia. LABORATORY DATA: Sodium 136, potassium 4.8, chloride 98, bicarbonate 24, BUN 98, creatinine 6.8, down from 8.8 on admission, glucose 97, and calcium 9.5. LFTs within normal limits. White blood cell count 10.0, hematocrit 30.4, platelets 176,000. PT 11.4, INR 1.1, PTT 23. Urinalysis specific gravity 1.010, pH 8.0. Dip test of 1+ protein, negative for all other findings. DIAGNOSTIC IMAGING: Renal ultrasound with bilateral atrophic echogenic kidneys consistent with medical renal disease. There is no evidence of hydronephrosis or urinary retention. The bladder is normal. ASSESSMENT AND PLAN: In summary, the patient is a 56-year-old gentleman with a history of acute on chronic renal insufficiency, likely secondary to some dehydration. This resulted in oliguria for which he presents to the hospital. He has received fluids here and his creatinine has improved somewhat from 8.8 to 6.8. More importantly, he has urinated 700 ml in the last two hours and the urine is clear and yellow. The patient reports voiding this without any difficulty at all and is doing well on his Hytrin. Physical exam essentially unremarkable. Laboratory data is notable for renal insufficiency. His urinalysis is within normal limits. Diagnostic imaging with an ultrasound does not reveal any evidence of hydronephrosis or distended bladder consistent with urinary retention/obstructive uropathy. It appears that this patient's acute on chronic renal insufficiency is likely secondary to prerenal or renal reasons rather than obstructive uropathy. The patient is voiding well and has put out 700 mL on his own in the last two hours. The urine observed at the bedside is clear and yellow at this time. His creatinine has slowly come down from 8.8 to 6.8. I do not feel that there is a need to place a Mckay catheter in this patient or intervene either with increased medication or surgery for his prostate. If he fails to improve further in his renal function, I would seek nephrologic causes of the same. Thank you for allowing me to participate in the care of this nice gentleman. Please do not hesitate to contact me for any questions that you further have regarding his care. I will be happy to see him with you as needed. Alejandro Collins M.D. DR: Luanne JOB#: [id number] CC:
[2017-03-13 04:44] VITALS: BP 112/81
[2017-03-13 05:45] LABS: MEAN CORPUSCULAR HEMOGLOBIN 34.6 PG (27.0-31.0); MEAN CORPUSCULAR HGB CONC 33.6 G/DL (32.0-36.0); MEAN CORPUSCULAR VOLUME 103 FL (80-99); MEAN PLATELET VOLUME 7.1 FL (6.5-10.1); PLATELET COUNT 172 K/UL (150-450); RED BLOOD COUNT 2.87 M/UL (4.70-6.10); RED CELL DISTRIBUTION WIDTH 12.2 % (11.6-14.8); WHITE BLOOD COUNT 11.7 K/UL (4.8-10.8)
[2017-03-13] MEDS: Heparin 5000 units/ml inj SUBQ SCH ×2 (05:56→13:23)
[2017-03-13 06:00] LABS: CALCIUM 9.5 mg/dL (8.6-10.2); CREATININE 6.3 mg/dL (0.7-1.2); GLOMERULAR FILTRATION RATE 9.2 mL/min (>60); POTASSIUM 4.9 mEQ/L (3.4-4.9)
[2017-03-13 08:00] VITALS: BP 119/69
--- NOTE | 2017-03-13 08:50 | Pulmonology Progress Note ---
Assessment/Plan Assessment/Plan ASSESSMENT acute renal failure on CKD HTN hyperparathyroidism ( of renal origin) anemia of chronic renal disease hx of CVA with RSW BPH PLAN OF CARE MS floor creat trending down nephro follows on Zemplar per nephro hold on HD renal US c/w bilateral echogenic kidneys c/w medical renal disease no hydro urine cx + mixed GPO BP management with CCB and optimize as needed ECHO with EF 70-75% and RVSP of 13 continue statin, Plavix DVT prophylaxis PT/OT urology eval noted monitor HH, remain at baseline case discussed and evaluated by supervising physician Subjective Allergies: Coded Allergies: NO KNOWN ALLERGIES (Verified Allergy, Unknown, 03/09/17) Subjective creat trending down mild leukocytosis today Objective Last 24 Hour Vital Signs Date Time Temp Pulse Resp B/P (MAP) Pulse Ox O2 Delivery O2 Flow Rate FiO2 03/13/17 08:00 98.3 65 18 119/69 96 Room Air 03/13/17 04:44 98.2 114 18 112/81 99 Room Air 03/13/17 00:49 98.2 97 19 108/71 98 Room Air 03/12/17 20:16 99.2 100 20 123/86 99 Room Air 03/12/17 15:59 98.1 92 21 105/67 98 Room Air 03/12/17 11:42 97.4 99 21 106/71 100 Room Air 03/12/17 09:29 96 121/81 General Appearance: no acute distress, other - awake, alert, responsive HEENT: normocephalic, atraumatic, anicteric, mucous membranes moist, PERRL Respiratory/Chest: lungs clear, no respiratory distress, no accessory muscle use Cardiovascular: normal peripheral pulses, normal rate, regular rhythm, no JVD Abdomen: normal bowel sounds, soft, non tender, non distended Genitourinary: normal external genitalia, other - Mckay with clear ridge urine Extremities: no edema, pedal pulses normal Neurologic/Psychiatric: alert, responsive, other - Right side weakness Musculoskeletal: normal muscle bulk Microbiology Date/Time Source Procedure Growth Status 03/11/17 15:40 Urine,Clean Catch Urine Culture - Preliminary Mixed Gram Positive Organism Resulted Laboratory Tests 03/13/17 05:20: White Blood Count 11.7H, Red Blood Count 2.87L, Hemoglobin 9.9L, Hematocrit 29.5L, Mean Corpuscular Volume 103H, Mean Corpuscular Hemoglobin 34.6H, Mean Corpuscular Hemoglobin Concent 33.6, Red Cell Distribution Width 12.2, Platelet Count 172, Mean Platelet Volume 7.1, Neutrophils (%) (Auto) , Lymphocytes (%) ( Auto) , Monocytes (%) (Auto) , Eosinophils (%) (Auto) , Basophils (%) (Auto) , Sodium Level 136, Potassium Level 4.9, Chloride Level 100, Carbon Dioxide Level 21, Anion Gap 15, Blood Urea Nitrogen 97H, Creatinine 6.3H, Estimat Glomerular Filtration Rate 9.2, Glucose Level 125H, Calcium Level 9.5 Current Medications Medications (Trade) Dose Ordered Sig/Osiris Route PRN Reason Start Time Stop Time Status Last Admin Dose Admin Acetaminophen (Tylenol) 650 mg Q6H PRN ORAL Mild Pain/Temp > 100.5 03/11/17 18:00 04/08/17 17:59 03/13/17 03:53 Amlodipine Besylate (Norvasc) 2.5 mg DAILY ORAL 03/12/17 09:00 04/09/17 08:59 03/12/17 09:29 Atorvastatin Calcium (Lipitor) 10 mg BEDTIME ORAL 03/11/17 21:00 04/08/17 20:59 03/12/17 20:47 Clopidogrel Bisulfate (Plavix) 75 mg DAILY ORAL 03/12/17 09:00 04/09/17 08:59 03/12/17 09:26 Heparin Sodium (Porcine) (Heparin 5000 units/ml) 5,000 units EVERY 8 HOURS SUBQ 03/11/17 22:00 04/08/17 21:59 03/13/17 05:56 Paricalcitol (Zemplar) 1 mcg DAILY ORAL 03/12/17 09:00 04/10/17 14:29 03/12/17 09:26 Terazosin HCl (Hytrin) 2 mg BEDTIME ORAL 03/11/17 21:00 04/08/17 20:59 03/12/17 20:46 Shayna Dominguez NP ([facility]te[facility]) Mar 13, 2017 08:50
[2017-03-13] MEDS: Paricalcitol 1mcg cap ORAL SCH (09:00)
[2017-03-13 12:00] VITALS: BP 118/64
--- NOTE | 2017-03-13 13:48 | Nephrology Progress Note ---
Assessment/Plan Problem List: (1) Acute on chronic renal failure Assessment: better (2) Secondary hyperparathyroidism (of renal origin) (3) HTN (hypertension) Plan cont Zemplar follow BMP Hold off on dialysis OK to DC Subjective Subjective feels ok Objective Objective Last 24 Hour Vital Signs Date Time Temp Pulse Resp B/P (MAP) Pulse Ox O2 Delivery O2 Flow Rate FiO2 03/13/17 12:00 97.1 68 20 118/64 97 Room Air 03/13/17 09:00 65 119/69 03/13/17 08:00 98.3 65 18 119/69 96 Room Air 03/13/17 04:44 98.2 114 18 112/81 99 Room Air 03/13/17 00:49 98.2 97 19 108/71 98 Room Air 03/12/17 20:16 99.2 100 20 123/86 99 Room Air 03/12/17 15:59 98.1 92 21 105/67 98 Room Air Intake and Output 03/13/17 03/14/17 19:00 07:00 Intake Total 360 ml Output Total 300 ml Balance 60 ml Intake Oral 360 ml Output Urine Total 300 ml Laboratory Tests 03/13/17 05:20: White Blood Count 11.7H, Red Blood Count 2.87L, Hemoglobin 9.9L, Hematocrit 29.5L, Mean Corpuscular Volume 103H, Mean Corpuscular Hemoglobin 34.6H, Mean Corpuscular Hemoglobin Concent 33.6, Red Cell Distribution Width 12.2, Platelet Count 172, Mean Platelet Volume 7.1, Neutrophils (%) (Auto) , Lymphocytes (%) ( Auto) , Monocytes (%) (Auto) , Eosinophils (%) (Auto) , Basophils (%) (Auto) , Sodium Level 136, Potassium Level 4.9, Chloride Level 100, Carbon Dioxide Level 21, Anion Gap 15, Blood Urea Nitrogen 97H, Creatinine 6.3H, Estimat Glomerular Filtration Rate 9.2, Glucose Level 125H, Calcium Level 9.5 Height (Feet): 5 Height (Inches): 4.00 Weight (Pounds): 136 Cardiovascular: normal rate Respiratory/Chest: lungs clear Extremities: other - no edema KIKE GASPAR Mar 13, 2017 13:48
[2017-03-13 16:00] VITALS: BP 123/64
[2017-03-13] MEDS ORDERED: ZEMPLAR1 MC1 ORAL (16:13)
--- NOTE | 2017-03-13 16:26 | Discharge Summary ---
Discharge Summary Hospital Course Date of Admission Mar 09, 2017 at 16:27 Date of Discharge Admitting Diagnosis SANDIP Hameed is a 56 year old male who was admitted on Mar 09, 2017 at 16:27 for Renal Failure Hospital Course The patient was seen and examined at bedside and all new and available data was reviewed in the patients chart. Last 24 Hour Vital Signs Date Time Temp Pulse Resp B/P (MAP) Pulse Ox O2 Delivery O2 Flow Rate FiO2 03/13/17 12:00 97.1 68 20 118/64 97 Room Air 03/13/17 09:00 65 119/69 03/13/17 08:00 98.3 65 18 119/69 96 Room Air 03/13/17 04:44 98.2 114 18 112/81 99 Room Air 03/13/17 00:49 98.2 97 19 108/71 98 Room Air 03/12/17 20:16 99.2 100 20 123/86 99 Room Air General: No acute distress, awake and alert HEENT: NCAT, sclera anicteric, PERRL, EOMI. Neck: Supple, no significant jugular venous distention, Lungs: Good inspiratory effort, clear to auscultation bilaterally, no Wheeze or Rales. Heart: Regular rate and rhythm, normal S1/S2, no murmur Abdomen: soft, nontender, nondistended. Normoactive bowel sounds. / Rectal: Refused and deferred. Extremities: No Cyanosis , clubbing or edema. Right LE brace. Neuro: A&O x 3, Able to move Left side extremities, right side weakness. Skin: warm, no rashes or lesions Psych: Normal mood and affect Discharge summery dictated job # [id number] (Patient was seen earlier today. Signature timestamp does not reflect patient encounter time) Ihsan Erickson MD Discharge Discharge Disposition Patient was discharged to Discharge Diagnoses: hIsan Erickson MD Mar 13, 2017 16:26
--- NOTE | 2017-03-14 04:00 | Discharge Summary ---
DATE OF ADMISSION: 03/09/2017 DATE OF DISCHARGE: 03/13/2017 HOSPITAL COURSE: This is a 56-year-old, gentleman with past medical history significant for hypertension, prior history of CVA with right-sided hemiparesis, BPH, and chronic renal insufficiency, who presented to the hospital initially to [facility] after he was noted for worsening of renal function as well as uremia. The patient subsequently was evaluated and then transferred to [facility]. Shortly after initial evaluation, the patient was admitted to the hospital with acute renal failure and chronic renal insufficiency stage 4 to 5. Throughout the hospital course, the patient was consulted with Dr. Joaquín Hankins from Nephrology as well as Dr. Hadley Murillo from Pulmonary Critical Care and a urology consultation with Dr. Alejandro Collins. Throughout the hospital course, the patient's status gradually improved and subsequently was discharged home today to be followed up with myself as well as Dr. Joaquín Hankins as outpatient. FINAL DIAGNOSES: 1. Acute renal insufficiency and chronic renal insufficiency. 2. Chronic renal failure stage 4 to 5. 3. Secondary hyperparathyroidism. 4. Hypertension. 5. Hypertensive nephrosclerosis. 6. History of cerebrovascular accident with right-sided weakness, hemiparesis. 7. Benign prostatic hypertrophy. DISCHARGE MEDICATION: Continue discharge medication list. ACTIVITY: As tolerated. DIET: Cardiorenal diet. FOLLOWUP: I advised the patient to follow up my office within one week. Ihsan Erickson M.D. DR: MK JOB#: [id number] CC:
== END 2017-03-13 17:42 | disposition home or self-care (01) | DRG 683 ==
LOC: 2E 16:27 → 3E 03-11 17:38
DX: N17.9 Acute kidney failure, unspecified (principal); I69.351 Hemiplegia and hemiparesis following cerebral infarction affecting right dominant side; I12.0 Hypertensive chronic kidney disease with stage 5 chronic kidney disease or end stage renal disease; N25.81 Secondary hyperparathyroidism of renal origin; N40.0 Benign prostatic hyperplasia without lower urinary tract symptoms; N18.9 Chronic kidney disease, unspecified; N18.5 Chronic kidney disease, stage 5; E86.0 Dehydration
CPT/HCPCS: 36415; 76775; 80048; 80053; 80061; 81003; 83036; 83735; 83970; 84100; 84153; 85007; 85025; 85610; 85730; 87086; 93005; 93306